=== PATIENT | female | born 2000 | race Caucasian/White ===

== ENCOUNTER 2021-08-27 22:34 | Emergency (ER) | payer OTHER, SELFPAY ==
--- NOTE | 2021-08-27 22:40 | ED_ITS ---
HPI - Asthma General Chief Complaint: Dyspnea Stated Complaint: SOB Time Seen by Provider: 08/27/21 22:40 Source: patient and EMS Mode of arrival: EMS Limitations: no limitations History of Present Illness HPI Narrative: seen [place] [facility] [place] rapid covid negative, patient is 7 months has no OB complaints, she notes her nebulizer machine mask is broken, she cannot fill the albuterol INH due to prior authorization. She did not get her prednisone Rx yet MD complaint: asthma attack and wheezing Onset (ago): day(s) (2) Severity: moderate Context: other (cold weather is a known trigger for her) Associated symptoms: dry cough Asthma History: childhood onset Treatments Prior to Arrival: inhaled bronchodilator ([employer] with EMS) Related Data Previous Rx's Medication Instructions Recorded albuterol sulfate 2.5 mg (3 mL) INHALATION Q4-6H PRN 08/28/21 #75 ml amoxicillin 500 mg tablet 500 mg PO BID 10 Days #20 tab 08/28/21 Allergies Allergy/AdvReac Type Severity Reaction Status Date / Time ibuprofen [From Motrin] Allergy Severe Angioedema Verified 08/27/21 22:53 Review of Systems Review of Systems: Constitutional : No Fever, No Chills ENT/Mouth : No Hoarseness, No sore throat, No Rhinorrhea Eyes: No Redness, No Discharge, No Vision Changes Cardiovascular : No Chest Pain, positive SOB, no Dyspnea on Exertion, No Edema Respiratory : positive Cough, No Sputum, positive Wheezing, Gastrointestinal : No Nausea, No Vomiting, No Diarrhea, No abdominal Pain Genitourinary : No Dysuria, No Hematuria Musculoskeletal : No joint pain, No Myalgias Skin : No rash Neuro : No Weakness, No Numbness, No Headache Psych : No anxiety, depression Heme/Lymph: No Bruising, No Bleeding Endocrine : No Polyuria, No Polydipsia All other systems reviewed and are negative [facility] Past Medical History Attestation statement: The following information was validated with the patient. Medical History (Updated 08/28/21 @ 01:02 by Alejandra Thomas DO) Asthma Social History Social History (Updated 08/27/21 @ 23:03 by Alejandra Thomas DO) Patient Tobacco Use Status: Never used Tobacco Use of substances other than those prescribed or required for medical reasons: No Advance Directives: No Physical Exam Vital Signs: Vital Signs: Last Vital Signs Temp 98.5 F 08/27/21 22:44 Pulse 90 08/28/21 00:54 Resp 21 H 08/28/21 00:54 BP 125/69 08/28/21 00:54 Pulse Ox 94 08/28/21 00:54 BMI result Body Mass Index 34.3 Appearance: Alert. Oriented X3. No acute distress. Eyes: Pupils equal, round and reactive to light. ENT: Pharynx normal. Neck: Normal inspection. Neck supple. CVS: tachycardic heart rate and rhythm. Pulses normal. Respiratory: No respiratory distress. Breath sounds very faint end exp wheezes Abdomen: Soft and non-tender. gravid uterus Skin: Skin warm and dry. Normal skin color. Normal skin turgor. Extremities: No lower extremity edema. No calf ttp Neuro: Oriented X 3. No motor deficit. No sensory deficit. Course Course Course Narrative: O2 ambulation trial 95% feels better given equipment for her home machine, has rescue INH in her hand MDM - Asthma MDM Narrative Medical decision making narrative: 21 yo female hx of asthma and usually has exacerbations due to cold weather was seen at [facility] [place] yesterday could not fill Rx and her nebulizer mask is broken at this time INH ordered, PO prednisone , flu / RSV / COVID swab ordered. She is not in resp distress at this time. Will observe and monitor. She has no signs of LE edema and no CP to suggest pulm edema or VTE Lab Data Labs: Lab Results 08/27/21 Range/Units 23:53 Influenza Type A (PCR) NEGATIVE (Negative) Influenza Type B (PCR) NEGATIVE (Negative) RSV RNA Qual (PCR) NEGATIVE (Negative) SARS-CoV-2 RNA (RT-PCR) NEGATIVE (Negative) Discharge Plan Discharge Clinical Impression: Bronchitis Asthma with exacerbation Qualifiers: Asthma severity: moderate Asthma persistence: persistent Qualified Code(s): J45.41 - Moderate persistent asthma with (acute) exacerbation Patient Disposition: Home, Self-Care Instructions: Asthma (ED), Acute Bronchitis (ED) Additional Instructions: return to ED for any worsening symptoms or concerns please fill your prednisone prescription call your OB tomorrow Prescriptions: New amoxicillin 500 mg tablet 500 mg PO BID 10 Days Qty: 20 RF: 0 albuterol sulfate 2.5 mg /3 mL (0.083 %) solution for nebulization 2.5 mg inhalation Q4-6H PRN (Reason: bronchospasm) Qty: 75 RF: 0
[2021-08-27 22:44] VITALS: BP 121/52; PULSE 104; RESP 22; TEMP 36.9; O2SAT 93; O2SAT 96; BMI 34.3
[2021-08-27] MEDS: predniSONE 20 MG TABLET 40 MG PO (23:08)
[2021-08-27] MEDS: Acetaminophen 325 MG TABLET 650 MG PO (23:09)
[2021-08-27] MEDS: Albuterol Sulfate 90 MCG 8 GM INHALER 2 PUFF INHALE (23:09)
[2021-08-28 00:36] LABS: Influenza A PCR NEGATIVE (Negative); Influenza B PCR NEGATIVE (Negative); Resp Syncy Virus RNA Qual PCR NEGATIVE (Negative); SARS COV2 PCR INHOUSE NEGATIVE (Negative)
[2021-08-28 00:54] VITALS: BP 125/69; PULSE 90; RESP 21; O2SAT 94
--- NOTE | 2021-08-28 01:01 | PC.NURSE ---
Per Dr Thomas walked pt around ED with O2 monitor. Lowest pt O2 was 95.
[2021-08-28 01:02] VITALS: O2SAT 95
== END 2021-08-28 01:11 | disposition home or self-care (01) ==
PROVIDERS: Emergency Provider Emergency Medicine; PCP Internal Medicine
DX: J40 Bronchitis, not specified as acute or chronic (principal); J45.41 Moderate persistent asthma with (acute) exacerbation; R06.02 Shortness of breath; R50.9 Fever, unspecified; Z20.822 Contact with and (suspected) exposure to COVID-19; Z79.899 Other long term (current) drug therapy
CPT/HCPCS: 0241U; 36415; 99284